=== PATIENT | male | born 1995 | race American Indian/Alaskan Native ===

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

== ENCOUNTER 2017-09-11 15:05 | Emergency (ER) | payer SELFPAY ==
[2017-09-11 15:14] VITALS: BP 136/55
[2017-09-11] MEDS ORDERED: MOTRIN PO ONE (16:58)
[2017-09-11] MEDS ORDERED: BOOSTRIX IM ONE (16:58)
--- NOTE | 2017-09-11 17:11 | Emergency Department Report ---
- General Chief Complaint: Wound/Laceration Stated Complaint: LEFT EYE PAIN Time Seen by Provider: 09/11/17 15:29 Source: patient Mode of arrival: Ambulatory Limitations: No Limitations - History of Present Illness Initial Comments: This is a 21-year-old male nontoxic, well nourished in appearance, no acute signs of distress presents to the ED with c/o of laceration to the left eyebrow. Patient stated this afternoon he was in school and a girl opened the door and hit the corner of the door to the left eyebrow. Patient denies head trauma. Denies loss of consciousness, headache, fever, chills, nausea, vomiting , chest pain, shortness of breath, blurry vision. Patient stated he is unaware of his last tetanus shot. Patient denies any allergies or past medical history besides asthma. -: This afternoon 1 - abrasion Patient Tetanus UTD: No Context: accidental Associated Symptoms: none. denies: pain, loss of feeling/numbness, suspect foreign body present, unable to move injured part, weakness followed by dizziness, nausea/vomiting, fever - Related Data Previous Rx's Medication Instructions Recorded Last Taken Type Ibuprofen [Motrin] 600 mg PO Q8H PRN #30 tablet 12/10/16 Unknown Rx Ibuprofen [Motrin] 600 mg PO Q8H PRN #30 tablet 09/11/17 Unknown Rx Allergies Allergy/AdvReac Type Severity Reaction Status Date / Time No Known Allergies Allergy Verified 12/10/16 04:18 ED Review of Systems ROS: Stated complaint: LEFT EYE PAIN Other details as noted in HPI Constitutional: denies: chills, fever Eyes: denies: eye pain, eye discharge, vision change ENT: denies: ear pain, throat pain Respiratory: denies: cough, shortness of breath, wheezing Cardiovascular: denies: chest pain, palpitations Endocrine: no symptoms reported Gastrointestinal: denies: abdominal pain, nausea, diarrhea Genitourinary: denies: urgency, dysuria Musculoskeletal: denies: back pain, joint swelling, arthralgia Skin: denies: rash, lesions Neurological: denies: headache, weakness, paresthesias Psychiatric: denies: anxiety, depression Hematological/Lymphatic: denies: easy bleeding, easy bruising ED Past Medical Hx - Past Medical History Previous Medical History?: Yes Hx Asthma: Yes - Surgical History Past Surgical History?: No - Social History Smoking Status: Never Smoker Substance Use Type: None - Medications Home Medications: Home Medications Medication Instructions Recorded Confirmed Last Taken Type Ibuprofen [Motrin] 600 mg PO Q8H PRN #30 tablet 12/10/16 Unknown Rx Ibuprofen [Motrin] 600 mg PO Q8H PRN #30 tablet 09/11/17 Unknown Rx ED Physical Exam - General Limitations: No Limitations General appearance: alert, in no apparent distress - Head Head exam: Present: atraumatic, normocephalic, normal inspection - Expanded Head Exam Expanded Head exam: Present: abrasion 1 - 0.5 cm abrasion. No swelling or bleeding noted. Slight tenderness. - Eye Eye exam: Present: normal appearance, PERRL, EOMI. Absent: scleral icterus, conjunctival injection, nystagmus, periorbital swelling, periorbital tenderness Pupils: Present: normal accommodation - ENT ENT exam: Present: normal exam, normal orophraynx, mucous membranes moist, TM's normal bilaterally, normal external ear exam - Neck Neck exam: Present: normal inspection, full ROM. Absent: tenderness, meningismus, lymphadenopathy, thyromegaly - Respiratory Respiratory exam: Present: normal lung sounds bilaterally. Absent: respiratory distress, wheezes, rales, rhonchi, stridor, chest wall tenderness, accessory muscle use, decreased breath sounds, prolonged expiratory - Cardiovascular Cardiovascular Exam: Present: regular rate, normal rhythm, normal heart sounds. Absent: bradycardia, tachycardia, irregular rhythm, systolic murmur, diastolic murmur, rubs, gallop - GI/Abdominal GI/Abdominal exam: Present: soft, normal bowel sounds. Absent: distended, tenderness, guarding, rebound, rigid, diminished bowel sounds - Rectal Rectal exam: Present: deferred - Extremities Exam Extremities exam: Present: normal inspection, full ROM, normal capillary refill. Absent: tenderness, pedal edema, joint swelling, calf tenderness - Back Exam Back exam: Present: normal inspection, full ROM. Absent: tenderness, CVA tenderness (R), CVA tenderness (L), muscle spasm, paraspinal tenderness, vertebral tenderness, rash noted - Neurological Exam Neurological exam: Present: alert, oriented X3, CN II-XII intact, normal gait, reflexes normal - Psychiatric Psychiatric exam: Present: normal affect, normal mood - Skin Skin exam: Present: warm, dry, intact, normal color. Absent: rash ED Course Vital Signs 09/11/17 15:10 Temperature 98.3 F Pulse Rate 64 Respiratory 18 Rate Blood Pressure 136/55 O2 Sat by Pulse 100 Oximetry - Reevaluation(s) Reevaluation #1: 09/11/17 17:11 Patient is speaking in full sentences with no signs of distress noted. ED Medical Decision Making - Medical Decision Making This is a 21-year-old male that presents with abrasion to the left eyebrow. Patient is stable and was examined by me. Patient received a tetanus booster in the ED. Patient also received motrin in the ED. x-ray of the facial bone obtained and the radiologist with no signs of fractures or any abnormalities. Patient is notified of x-ray results with noted by the patient. The abrasion has been cleaned with soap and water and patient was educated on proper wound care. Patient received Motrin and discharged. Patient was instructed Follow- up with a primary care doctor in 3-5 days or if symptoms worsen such as headaches, blurred vision, or symptoms continue return to emergency room as soon as possible. At time time of discharge, the patient does not seem toxic or ill in appearance. No acute signs of distress noted. Patient agrees to discharge treatment plan of care. No further questions noted by the patient. Critical care attestation.: If time is entered above; I have spent that time in minutes in the direct care of this critically ill patient, excluding procedure time. ED Disposition Clinical Impression: Abrasion Disposition: [id number] TO HOME OR SELFCARE Is pt being admited?: No Does the pt Need Aspirin: No Condition: Stable Instructions: Abrasion (ED), Ibuprofen (By mouth) Additional Instructions: Follow-up with a primary care doctor in 3-5 days or if symptoms worsen such as headaches, blurred vision, or symptoms continue return to emergency room as soon as possible. Prescriptions: Ibuprofen [Motrin] 600 mg PO Q8H PRN #30 tablet PRN Reason: Pain Referrals: FARHANA VALENTIN MD [Primary Care Provider] - 3-5 Days LEXA MCKOY MD [Staff Physician] - 3-5 Days [facility] [Outside] - 3-5 Days [facility] [Outside] - 3-5 Days Forms: Work/School Release Form(ED)
--- NOTE | 2017-09-11 17:37 | XRay Report ---
FINAL REPORT EXAM: XR FACIAL BONES < 3V HISTORY: hit on left periorbital region TECHNIQUE: Five views facial bones Comparison: None FINDINGS: There is an air-fluid level in the right maxillary sinus. There is opacification of the left maxillary sinus. The right orbital floor is mildly irregular. The left orbital floor appears grossly unremarkable. Nasal septum is slightly deviated to the left. Nasal bone is intact. The orbital rims are grossly unremarkable. The frontal zygomatic sutures are within normal limits. There is soft tissue swelling about the right aspect of the nose on the submental vertex view. The imaged portion of the mandible condyles are unremarkable. IMPRESSION: Air-fluid level right maxillary sinus. Opacified left maxillary sinus. Mildly irregular right orbital floor. Right nasal soft tissue swelling. Recommend CT facial bones.
== END 2017-09-11 18:06 | disposition home or self-care (01) ==
LOC: ED 15:05
DX: S00.212A Abrasion of left eyelid and periocular area, initial encounter (principal); W22.8XXA Striking against or struck by other objects, initial encounter; Y93.89 Activity, other specified; Y92.89 Other specified places as the place of occurrence of the external cause; Y99.8 Other external cause status
CPT/HCPCS: 70140; 90471; 90715; 99283